=== PATIENT | male | born 1950 | race African-American/Black ===

== ENCOUNTER 2019-04-03 07:15 | Inpatient (IN) | payer OTHER, BC ==
[2019-04-03] MEDS ORDERED: LIDOCAINE 1% 2 ML INJ ID PRN (08:58)
[2019-04-03] MEDS ORDERED: LR 1,000 ML IV ONE (08:58)
--- NOTE | 2019-04-03 10:16 | ASMTCASEMG ---
Living Arrangements What is your living Answers: With Spouse arrangement? Who do you live with? Type Of Residence What kind of residence do Answers: House you live in? Discharge Plan Comments Coordination Status Comments Notes: Patient is a 68yo male who comes to [facility] for surgery L4/5 decompression with TLIF. He lives in [place]. No therapies ordered at this time. CM following. Date Signed: 04/03/2019 10:15 AM Electronically Signed By:Jackie Hollins LCSW
[2019-04-03] MEDS ORDERED: CHLORHEXIDINE GLUC HIBICLENS 118 ML BTL TP ONE (10:40)
[2019-04-03] MEDS ORDERED: BUPIVACAINE/EPI 0.25% 30 ML SDV ONE (10:41)
[2019-04-03] MEDS ORDERED: BUPIVACAINE 0.25% 30 ML SDV ONE (10:41)
[2019-04-03] MEDS ORDERED: THROMBIN (BOVINE) 5,000 UNIT VIAL TP ONE (10:41)
[2019-04-03] MEDS ORDERED: CITRATE DEXTROSE SOLN 500 ML BAG ONE (10:41)
[2019-04-03] MEDS ORDERED: BACITRACIN 50,000 UNITS/10 ML SYR IRR ONE (10:42)
--- NOTE | 2019-04-03 10:46 | PDANEPAE ---
ANE History of Present Illness 68 year old for lumbar TILF ANE Past Medical History - Cardiovascular History Hx Hypertension: Yes Hx Arrhythmias: No Hx Chest Pain: No Hx Coronary Artery / Peripheral Vascular Disease: No Hx CHF / Valvular Disease: No Hx Palpitations: No Cardiovascular History Comment: BP treated by PCP - Pulmonary History Hx COPD: No Hx Asthma/Reactive Airway Disease: No Hx Recent Upper Respiratory Infection: No Hx Oxygen in Use at Home: No Hx Sleep Apnea: No Sleep Apnea Screening Result - Last Documented: Positive - Neurologic History Hx Cerebrovascular Accident: No Hx Seizures: No Hx Dementia: No - Endocrine History Hx Diabetes: No - Renal History Hx Renal Disorders: No - Liver History Hx Hepatic Disorders: No - Neurological & Psychiatric Hx Hx Neurological and Psychiatric Disorders: Yes Neurological / Psychiatric History Comment: R leg and foot numbness. R buttock sciatica. ball of foot neuropathy - Cancer History Hx Cancer: Yes Cancer History Comment: prostate - Congenital Disorder History Hx Congenital Disorders: No - GI History Hx Gastrointestinal Disorders: No - Other Health History Other Health History: none - Chronic Pain History Chronic Pain: Yes (sciatica) - Surgical History Prior Surgeries: 02/06 RTKA. PROSTATE SX 2011 BRACHYTHERAPY. JAW REPAIR ANE Review of Systems Review of systems is: negative Review of Systems: - Exercise capacity METS (RN): 5 METS ANE Patient History - Allergies Allergies/Adverse Reactions: No Known Allergies Allergy (Verified 04/03/19 09:24) - Home Medications Home medications: home medication list seen and reviewed Home Medications: Diltiazem HCl [Diltiazem 24Hr Cd] 360 mg PO DAILY 03/21/19 [Last Taken 04/03/19 07:00] Hydrochlorothiazide [HCTZ (*)] 12.5 mg PO DAILY 03/21/19 [Last Taken 04/02/19 07 :00] Lisinopril [Zestril 40 mg (*)] 40 mg PO DAILY 03/21/19 [Last Taken 04/03/19 07: 00] Naproxen Sodium [Aleve 220 MG (*)] 220 mg PO BID PRN 03/21/19 [Last Taken ] Tamsulosin HCl [Flomax 0.4 MG (*)] 0.4 mg PO BID 03/21/19 [Last Taken 04/03/19 07:00] - NPO status NPO Since - Liquids (Date): 04/03/19 NPO Since - Liquids (Time): 07:00 NPO Since - Solids (Date): 04/02/19 NPO Since - Solids (Time): 19:00 - Smoking Hx Smoking Status: Never smoked - Family Anes Hx Family Hx Anesthesia Complications: none ANE Labs/Vital Signs - Labs Result Diagrams: 04/03/19 09:30 - Vital Signs Blood Pressure: 142/98 Heart Rate: 73 Respiratory Rate: 13 O2 Sat (%): 98 Height: 175.26 cm Weight: 83.915 kg ANE Physical Exam - Airway Neck exam: FROM Mallampati Score: Class 1 Mouth exam: normal dental/mouth exam - Pulmonary Pulmonary: no respiratory distress - Cardiovascular Cardiovascular: regular rate and rhythym - ASA Status ASA Status: II ANE Anesthesia Plan Anesthesia Plan: general endotracheal anesthesia
[2019-04-03] MEDS ORDERED: morphINE PF 0.2 MG in SYRINGE INTRATHECAL 1 SYR IT ONE (10:59)
[2019-04-03] MEDS ORDERED: TRANEXAMIC ACID 1,000 MG in NS 100 ML IV ONE (10:59)
[2019-04-03] MEDS ORDERED: fentaNYL 50 MCG in SYRINGE INTRATHECAL 1 SYR IT ONE (10:59)
[2019-04-03] MEDS ORDERED: ceFAZolin 2 GM/DEXTROSE 100 ML IV ONE (10:59)
[2019-04-03] MEDS ORDERED: ACETAMINOPHEN 500 MG TAB PO ONE (10:59)
[2019-04-03] MEDS ORDERED: GABAPENTIN 300 MG CAP PO ONE (10:59)
--- NOTE | 2019-04-03 11:00 | PDHPUP ---
History & Physical Update H&P update statement: This history and physical update is based on an assessment of the patient which was completed after admission or registration (within 24 hours), but prior to the surgery/procedure. H&P update: H&P reviewed & patient examined, no change in patient's condition since H&P completed
[2019-04-03] MEDS ORDERED: fentaNYL 100 MCG/2 ML INJ ONE (11:46)
[2019-04-03] MEDS ORDERED: PROPOFOL 200 MG/20 ML VIAL ONE (11:47)
[2019-04-03] MEDS ORDERED: KETAMINE 500 MG/10 ML VIAL ONE (11:47)
[2019-04-03] MEDS ORDERED: PROPOFOL/EMULSION 500 MG/50 ML BOTTLE IV ONE ×2 (11:47→15:09)
[2019-04-03] MEDS ORDERED: REMIFENTANIL HCL 1 MG VIAL ONE ×2 (11:47→14:04)
[2019-04-03] MEDS ORDERED: CEFEPIME HCL 2 GM in NS 100 ML IV ONE (12:30)
[2019-04-03] MEDS ORDERED: MAGNESIUM HYDROXIDE 30 ML UDCUP PO PRN (15:10)
[2019-04-03] MEDS ORDERED: ONDANSETRON DISINTEGRATING 4 MG TAB PO PRN (15:10)
[2019-04-03] MEDS ORDERED: diphenhydrAMINE 25 MG CAP PO PRN (15:10)
[2019-04-03] MEDS ORDERED: LACTULOSE 20 GM/30 ML UDCUP PO PRN (15:10)
[2019-04-03] MEDS ORDERED: ONDANSETRON 4 MG/2 ML VIAL IVP PRN ×2 (15:10→15:25)
[2019-04-03] MEDS ORDERED: BISACODYL 10 MG SUPP PR PRN (15:10)
[2019-04-03] MEDS ORDERED: NS 1,000 ML IV SCH (15:15)
--- NOTE | 2019-04-03 15:19 | SOAPPROG ---
SOAP Progress Note Assessment/Plan: Assessment: 68 yo M sp L4/5 TLIF Plan: stable LSO brace when out of bed vanco for abx prophylaxis PT/OT lovenox starts 04/04 please call with neuro changes 04/03/19 15:17 Subjective: + back pain, no leg pain. Objective: Vital Signs Temp Pulse Resp BP Pulse Ox 36.8 C 73 13 142/98 H 98 04/03/19 09:41 04/03/19 10:46 04/03/19 10:46 04/03/19 10:46 04/03/19 10:46 Laboratory Results 04/03/19 09:30 somnolent PERRL, EOMI KOREY x 4 + light touch ICD10 Worksheet Patient Problems: Problems Problem Status Onset Fusion of spine of lumbar region Acute - ICD10 Problem Qualifiers (1) Fusion of spine of lumbar region
[2019-04-03] MEDS ORDERED: NALOXONE HCL 0.4 MG/ML INJ IVP PRN (15:25)
[2019-04-03] MEDS ORDERED: fentaNYL 100 MCG/2 ML INJ IVP PRN (15:25)
[2019-04-03] MEDS ORDERED: HYDROmorphONE/DILAUDID 1 MG/ML INJ IVP PRN (15:25)
[2019-04-03] MEDS ORDERED: PROMETHAZINE HCL 25 MG/ML INJ IVP PRN (15:25)
[2019-04-03] MEDS ORDERED: VANCOMYCIN 1.5 GM in NS 250 ML IV ONE (16:30)
[2019-04-03] MEDS: POLYETHYLENE GLYCOL 3350 17 GM PKT PO SCH ×2 (17:06→21:24)
--- NOTE | 2019-04-03 19:01 | PDMN ---
Medical Necessity Medical necessity: 68yo s/p L4/5 TLIF lum hernandez fusion, CPT 37264, [facility] S820 Lumbar Fusion, Pt s/p TLIF, [facility] IP only
[2019-04-03] MEDS: FAMOTIDINE 20 MG TAB PO SCH (21:24)
[2019-04-03] MEDS: TAMSULOSIN HCL 0.4 MG CAP PO SCH (21:25)
[2019-04-03] MEDS: SENNOSIDES/DOCUSATE SODIUM TAB PO SCH (21:25)
[2019-04-04] MEDS: oxyCODONE IR 5 MG TAB PO PRN ×2 (01:00→19:46)
--- NOTE | 2019-04-04 02:58 | GOP ---
[f rep st] OPERATIVE REPORT DATE OF OPERATION: 04/03/2019 SURGEON: Tim Blanchard MD [employer] MANAGER: MELECIO Stone. ANESTHESIA: General endotracheal. PREOPERATIVE DIAGNOSIS: Severe L4-5 degenerative joint disease and grade 1 unstable spondylolisthesi s with severe spinal stenosis and low recess impingement. Intractable low back pain and right lower extremity radicular discomfort. Failed conservative care. POSTOPERATIVE DIAGNOSIS: Severe L4-5 degenerative joint disease and grade 1 unstable spondylolisthes is with severe spinal stenosis and low recess impingement. Intractable low back pain and right lower extremity radicular discomfort. Failed conservative care. PROCEDURE PERFORMED: Right-sided L4-5 far lateral transpedicular decompression with L4-5 posterior n onsegmental (pedicle screws and axle device) fixation and posterolateral fusion with local autograft, bone morphogenic protein and morselized allograft. L4-5 posterior/transforaminal lumbar interbody fu alex with 2 structural PEEK interbody spacers, local autograft and bone morphogenic protein. Use of intraoperative microscopy, fluoroscopy and computer volumetric stereotactic navigation with intraoper ative neurophysiologic testing. Injection of intrathecal. Narcotic analgesics for postoperative tracy n control. FINDINGS: ESTIMATED BLOOD LOSS: 75 cc. INDICATIONS: The patient is a 68-year-old man with a grade 1 unstable spondylolisthesis at the L4-5 level. Severe spinal stenosis and lateral recess impingement and foraminal narrowing with intractabl e low back pain and right lower extremity radicular discomfort. He has failed extensive conservative care and presents now for surgical decompression and stabilization through a mini open approach. DESCRIPTION OF PROCEDURE: After informed consent was obtained, the patient was taken to the operatin g room and placed in the prone position on the Bryson table. The lumbosacral area was prepped and d raped in a sterile fashion. After fluoroscopic localization and correct levels the subcutaneous and intramuscular tissues were infiltrated with local anesthesia. A midline linear incision was then cre ated over the L4-5 spinous process. This was carried down to the fascial layer, which was then incis ed using monopolar electrocautery and carried in the subperiosteal plane along the spinous processes and lamina bilaterally. Intraoperative fluoroscopy was again utilized to verify the correct levels. Following this, the dissection was carried out over the facet joints. The microscope was then broug ht in and right-sided far lateral transpedicular decompression was performed with complete unroofing of the facet joint. There was a large synovial cyst that was not appreciated on the MRI that was anabelle y stuck to the L5 nerve root and thecal sac that required meticulous dissection under high-power micr oscopy. This took quite a bit of time, but I was able to very meticulously dissect this off the dura for a thorough central canal decompression as well as the foraminal and lateral recess decompression with the unroofing of the facet joint. Following adequate decompression the [employer] neuronavigation al system was brought in and 3D reconstructed images sent to the [employer] station. Using computer volu metric stereotactic navigation, pedicle screws were placed on the right at L4 and L5. Each individua l screw was tested neurophysiologically as well with monopolar electrostimulation and interpretation of the potentials by the surgeon. Following this, a jennifer was placed and secured under distraction, du ring which time a complete diskectomy was performed with preparation of the endplates and placement o f 2 structural PEEK interbody spacers, local autograft and bone morphogenic protein. The screw and r od system was then placed on a slight amount of compression in order to facilitate bony union and to minimize the potential for posterior graft migration. An axial device was then placed in lieu of lef t-sided pedicle screws in order to maximize the bony surface area for the posterolateral fusion and m inimize with additional risk of complications with the pedicle screws on that side. The remaining la liban and facet joint on the left side were extensively drilled out and the residual local autograft a long with bone morphogenic protein and morselized allograft was placed out laterally for posterolater al fusion at the L4-5 level. 200 mcg of Duramorph along with 50 mcg of fentanyl were injected intrat hecally for postoperative pain control. The subcutaneous and intramuscular tissues were re-infiltrat ed with local anesthesia and the wound was closed in a layered fashion using interrupted Vicryl sutur es, followed by Steri-Strips on the skin. COMPLICATIONS: None. DISPOSITION: The patient is currently in the process of being repositioned for extubation. /[id number]/MODL
[2019-04-04 05:01] LABS: PLATELET COUNT 162 10^3/uL (150-400)
[2019-04-04] MEDS: ACETAMINOPHEN 500 MG TAB PO SCH ×3 (08:40→21:44)
[2019-04-04] MEDS: FAMOTIDINE 20 MG TAB PO SCH ×2 (08:43→21:45)
[2019-04-04] MEDS: DILTIAZEM CD 180 MG CAP PO SCH (08:43)
[2019-04-04] MEDS: HYDROCHLOROTHIAZIDE 12.5 MG CAP PO SCH (08:44)
[2019-04-04] MEDS: SENNOSIDES/DOCUSATE SODIUM TAB PO SCH ×2 (08:44→21:46)
[2019-04-04] MEDS: TAMSULOSIN HCL 0.4 MG CAP PO SCH ×2 (08:44→21:46)
[2019-04-04] MEDS: LISINOPRIL 40 MG TAB PO SCH (08:44)
[2019-04-04] MEDS: POLYETHYLENE GLYCOL 3350 17 GM PKT PO SCH ×3 (08:45→21:45)
[2019-04-04] MEDS: ENOXAPARIN 40 MG/0.4 ML SYR SC SCH (08:57)
--- NOTE | 2019-04-04 09:14 | SOAPPROG ---
SOAP Progress Note Assessment/Plan: Assessment: 68 yo M POD #1 L4/5 TLIF Plan: neuro: stable and doing well :) urinary retention, will remove castellanos this am LSO brace when out of bed vanco for abx prophylaxis PT/OT scd/alexander/lovenox for dvt prophylaxis please call with neuro changes 04/03/19 15:17 04/04/19 09:12 Subjective: + back pain, no hip pain, no weakness. Objective: Vital Signs Temp Pulse Resp BP Pulse Ox 36.7 C 87 16 134/87 H 96 04/04/19 08:00 04/04/19 08:43 04/04/19 08:00 04/04/19 08:44 04/04/19 08:00 Laboratory Results 04/04/19 04:20 04/04/19 04:20 04/03/19 04/04/19 04/05/19 05:59 05:59 05:59 Intake Total 3450 500 Output Total 2185 440 Balance 1265 60 AAOx4, +FC PERRL, EOMI 5/5 + light touch C/D/I ICD10 Worksheet Patient Problems: Problems Problem Status Onset Fusion of spine of lumbar region Acute - ICD10 Problem Qualifiers (1) Fusion of spine of lumbar region
[2019-04-04] MEDS: METHOCARBAMOL 750 MG TAB PO PRN ×2 (13:26→21:45)
[2019-04-05] MEDS: oxyCODONE IR 5 MG TAB PO PRN (05:16)
--- NOTE | 2019-04-05 07:48 | SOAPPROG ---
SOAP Progress Note Assessment/Plan: Assessment: 68 yo M POD #2 L4/5 TLIF Plan: neuro: stable and doing well :) urinary retention, castellanos removed and urinating on his own. LSO brace when out of bed post op x-rays look great dc home today vanco for abx prophylaxis PT/OT scd/alexander/lovenox for dvt prophylaxis please call with neuro changes 04/03/19 15:17 04/04/19 09:12 04/05/19 07:47 Subjective: + back pain, no leg pain, no weakness. Objective: Vital Signs Temp Pulse Resp BP Pulse Ox 36.6 C 61 16 114/71 94 04/04/19 23:29 04/04/19 23:29 04/04/19 23:29 04/04/19 23:29 04/04/19 23:29 Laboratory Results 04/04/19 04:20 04/04/19 04:20 04/04/19 04/05/19 04/06/19 05:59 05:59 05:59 Intake Total 3450 1000 Output Total 2185 2390 Balance 1265 -1390 AAOx4, + FC PERRL, EOMI, no facial droop 5/5 + light touch C/D/I ICD10 Worksheet Patient Problems: Problems Problem Status Onset Fusion of spine of lumbar region Acute - ICD10 Problem Qualifiers (1) Fusion of spine of lumbar region
[2019-04-05 08:33] VITALS: BP 137/91
[2019-04-05] MEDS: POLYETHYLENE GLYCOL 3350 17 GM PKT PO SCH (08:35)
[2019-04-05] MEDS: ACETAMINOPHEN 500 MG TAB PO SCH (08:35)
[2019-04-05] MEDS: DILTIAZEM CD 180 MG CAP PO SCH (08:36)
[2019-04-05] MEDS: FAMOTIDINE 20 MG TAB PO SCH (08:37)
[2019-04-05] MEDS: HYDROCHLOROTHIAZIDE 12.5 MG CAP PO SCH (08:38)
[2019-04-05] MEDS: LISINOPRIL 40 MG TAB PO SCH (08:38)
[2019-04-05] MEDS: TAMSULOSIN HCL 0.4 MG CAP PO SCH (08:38)
[2019-04-05] MEDS: SENNOSIDES/DOCUSATE SODIUM TAB PO SCH (08:38)
[2019-04-05] MEDS: ENOXAPARIN 40 MG/0.4 ML SYR SC SCH (08:48)
--- NOTE | 2019-04-05 15:09 | ASMTLACE ---
LACE Length of stay for Answers: 3 days current admission Acuity / Level of Answers: Yes Care: Did the patient have an inpatient admission? Comorbidities - select Answers: Other Notes: L4/5 TLIF all that apply # of Emergency department Answers: 1-2 visits in the last 6 months Score: 8 Date Signed: 04/05/2019 03:08 PM Electronically Signed By:LOU Hedrick
--- NOTE | 2019-04-05 15:10 | ASMTCMCOM ---
CM Note CM Note Notes: PT rec home/outpatient, OT rec home. Pt medically stable for d/c, no CM d/c needs identified. Date Signed: 04/05/2019 03:09 PM Electronically Signed By:LOU Hedirck
== END 2019-04-05 13:42 | disposition home or self-care (01) | DRG 455 ==
LOC: F1N 08:46 → F3N 16:18
PROVIDERS: ADMIT Neurological Surgery; ATTEND Neurological Surgery
PROC: 01NB0ZZ Release Lumbar Nerve, Open Approach (ICD-10-PCS; principal; 2019-04-03 11:30)
PROC: 3E0U0GB Introduction of Recombinant Bone Morphogenetic Protein into Joints, Open Approach (ICD-10-PCS; principal; 2019-04-03 11:30)
PROC: 0ST20ZZ Resection of Lumbar Vertebral Disc, Open Approach (ICD-10-PCS; principal; 2019-04-03 11:30)
PROC: 00NY0ZZ Release Lumbar Spinal Cord, Open Approach (ICD-10-PCS; principal; 2019-04-03 11:30)
PROC: 4A1004G Monitoring of Central Nervous Electrical Activity, Intraoperative, Open Approach (ICD-10-PCS; principal; 2019-04-03 11:30)
PROC: 0SG00AJ Fusion of Lumbar Vertebral Joint with Interbody Fusion Device, Posterior Approach, Anterior Column, Open Approach (ICD-10-PCS; principal; 2019-04-03 11:30)
PROC: 8E0WXBF Computer Assisted Procedure of Trunk Region, With Fluoroscopy (ICD-10-PCS; principal; 2019-04-03 11:30)
PROC: 0SG00J1 Fusion of Lumbar Vertebral Joint with Synthetic Substitute, Posterior Approach, Posterior Column, Open Approach (ICD-10-PCS; principal; 2019-04-03 11:30)
DX: M47.26 Other spondylosis with radiculopathy, lumbar region (principal); M43.16 Spondylolisthesis, lumbar region; M41.9 Scoliosis, unspecified; M48.061 Spinal stenosis, lumbar region without neurogenic claudication; M71.38 Other bursal cyst, other site; I10 Essential (primary) hypertension
CPT/HCPCS: 97116-GP; 97161-GP; 97165-GO; 97535-GO; C1713; C1762; J0690; J0692; J1650; J2274; J2704; J3010; J3370